=== PATIENT | female | born 1955 | race Caucasian/White ===

== ENCOUNTER 2019-05-28 16:13 | Emergency (ER) | payer MEDICARE, MEDICAID ==
[2019-05-28] MEDS ORDERED: NS 0.9% 1000 ML** 1,000 ML IV ONE (16:41)
[2019-05-28] MEDS ORDERED: Morphine 4 MG/ML VIAL (1 ml) 4 MG/ML VIAL IV ONE (16:52)
[2019-05-28] MEDS ORDERED: Ondansetron INJ* 2 MG/ML VIAL IV ONE (16:52)
--- NOTE | 2019-05-28 16:56 | ED ---
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 She notes that she has been vomiting green vomit and having constant diarrhea. She rates her pain severity due to the abd pain a 6/10. She has blood clots and takes Xarelto regularly. No aggravating or alleviating factors noted. She also denies dysuria, burning, back pain, and fever. - History of Current Complaint Chief Complaint: EDAbdPain Stated Complaint: VOMITING/DIARRHEA AND SIDE PAINS PER PT Time Seen by Provider: 05/28/19 16:41 Hx Obtained From: Patient Onset/Duration: Sudden Onset, Lasting Days, Still Present Timing: Days Severity Initially: Moderate Severity Currently: Moderate Pain Intensity: 6 Pain Scale Used: 0-10 Numeric Location: Discrete At: LLQ Aggravating Factor(s): Nothing Alleviating Factor(s): Nothing Associated Signs and Symptoms: Positive: Negative - dysuria, back pain, burning , Vomiting, Diarrhea. Negative: Fever Allergies/Adverse Reactions: Allergies Allergy/AdvReac Type Severity Reaction Status Date / Time ampicillin Allergy Vomiting Verified 05/28/19 16:19 hydrocodone Allergy Vomiting Verified 05/28/19 16:19 hydromorphone [From Dilaudid] Allergy Vomiting Verified 05/28/19 16:20 PMH/Surg Hx/FS Hx/Imm Hx Sensory History: Denies: Hx Legally Blind, Hx Deafness Opthamlomology History: Denies: Hx Legally Blind EENT History: Denies: Hx Deafness - Surgical History Surgical History: None Surgery Procedure, Year, and Place: none Infectious Disease History: No Infectious Disease History: Denies: Traveled Outside the [place] in Last 30 Days - Family History Known Family History: Negative: Renal Disease - Social History Alcohol Use: None Hx Substance Use: No Substance Use Type: Reports: None Hx Tobacco Use: No Review of Systems Negative: Fever Positive: Abdominal Pain, Vomiting, Diarrhea Negative: burning, dysuria Musculoskeletal: Other - neg - back pain All Other Systems Reviewed And Are Negative: Yes Physical Exam - Summary Physical Exam Summary: Constitutional: Well-developed, Well-nourished, Alert. (-) Distressed Skin: Warm, Dry HENT: Normocephalic; Atraumatic Eyes: Conjunctiva normal Neck: Musculoskeletal ROM normal neck. (-) JVD, (-) Stridor, (-) Tracheal deviation Cardio: Rhythm regular, rate normal, Heart sounds normal; Intact distal pulses; The pedal pulses are 2+ and symmetric. Radial pulses are 2+ and symmetric. (-) Murmur Pulmonary/Chest wall: Effort normal. (-) Respiratory distress, (-) Wheezes, (-) Rales Abd: Soft, LLQ tenderness, mild distension, (-) Guarding, (-) Rebound Musculoskeletal: (-) Edema Lymph: (-) Cervical adenopathy Neuro: Alert, Oriented x3 Psych: Mood and affect Normal Triage Information Reviewed: Yes Vital Signs On Initial Exam: Initial Vitals Temp Pulse Resp BP Pulse Ox 97.2 F 78 16 160/97 97 05/28/19 16:14 05/28/19 16:14 05/28/19 16:14 05/28/19 16:14 05/28/19 16:14 Vital Signs Reviewed: Yes Procedures - Sedation Patient Received Moderate/Deep Sedation with Procedure: No Diagnostics - Vital Signs Vital Signs Temp Pulse Resp BP Pulse Ox 05/28/19 16:14 97.2 F 78 16 160/97 97 - Laboratory Result Diagrams: 05/28/19 17:12 05/28/19 17:12 Lab Statement: Any lab studies that have been ordered have been reviewed, and results considered in the medical decision making process. 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 She notes that she has been vomiting green vomit and having constant diarrhea. Test results normal except for Sodium 133, Carbon Dioxide 21, BUN/Creatinine 21.9, Glucose 147, Calcium 11.1, AST 11, and Alkaline Phosphatase 149. Final Dx are abd pain and rule out diverticulitis. This pt will be a sign-out to Dr. Perkins at the 1900 05/28/[address] A/P and disposition. - Diagnoses Provider Diagnoses: Abdominal pain Discharge ED - Sign-Out/Discharge Documenting (check all that apply): Sign-Out Patient Signing out patient TO: Felipe Perkins - Discharge Plan Referrals: Cali Sandhu MD [Primary Care Provider] - - Attestation Statements Document Initiated by Scribe: Yes Documenting Scribe: Epifanio Sanchez Provider For Whom Scribe is Documenting (Include Credential): Emre Giraldo DO Scribe Attestation: I, Epifanio Sanchez, scribed for Emre Giraldo DO on 05/28/19 at 1847.
[2019-05-28 17:19] LABS: ABS Eosinophils 0.1 10^3/ul (0-0.6); ABS Lymphocytes 1.5 10^3/ul (1.0-4.8); ABS Monocytes 0.5 10^3/ul (0-0.8); Eosinophil % 1.6 %; Hematocrit 43 % (35-47); Hemoglobin 14.6 g/dL (12.0-16.0); Lymphocyte % 21.3 %; Mean Corpuscular HGB Conc 34 g/dL (31-36); Mean Corpuscular Hemoglobin 30 pg (27-31); Mean Corpuscular Volume 89 fL (80-97); Mean Platelet Volume 8.5 fL (7.4-10.4); Nucleated Red Blood Cells % 0.2; Platelet Count 178 10^3/uL (150-450); Red Blood Count 4.86 10^6 /uL (3.70-4.87); Red Cell Distribution Width 15 % (10-15); White Blood Count 7.1 10^3/uL (3.5-10.8)
[2019-05-28 17:35] LABS: Albumin 4.1 g/dL (3.2-5.2); Albumin/Globulin Ratio 1.5 (1-3); BUN/Creatinine Ratio 21.9 (8-20); Calcium 11.1 mg/dL (8.6-10.3); EGFR African American 96.8 (>60); Globulin 2.7 g/dL (2-4); Total Bilirubin 0.5 mg/dL (0.2-1.0); Total Protein 6.8 g/dL (6.4-8.9)
--- NOTE | 2019-05-28 19:10 | ED ---
Progress - Progress Note Progress Note: Patient is received as a sign-out from Dr. Giraldo to Dr. Perkins at [address] ABD/PEL results. CT ABD/PEL IMPRESSION: 1. No CT findings to correlate with patient's symptomatology. 2. Borderline infrarenal aortic aneurysm. No rupture. THIS REPORT WAS REVIEWED BY DR. PERKINS. Patient was discharged to home with PCP follow-up. Re-Evaluation - Re-Evaluation First Eval Re-Evaluation Time: 20:42 Comment: Results of CT were discussed with the patient, patient was discharged to home. Course/Dx - Course Course Of Treatment: Patient is received as a sign-out from Dr. Giraldo to Dr. Perkins at 1900 05/28/[address] ABD/PEL results. CT ABD/PEL IMPRESSION: 1. No CT findings to correlate with patient's symptomatology. 2. Borderline infrarenal aortic aneurysm. No rupture. Patient was discharged to home with PCP follow-up. - Diagnoses Provider Diagnoses: Abdominal pain Discharge ED - Sign-Out/Discharge Documenting (check all that apply): Patient Departure - discharge - Discharge Plan Condition: Stable Disposition: HOME Prescriptions: Dicyclomine CAP* [Bentyl CAP*] 10 mg PO ACHS PRN #15 cap PRN Reason: abdominal cramping Diphenoxylat/Atrop 2.5-0.025M* [Lomotil TAB*] 1 tab PO QID PRN #15 tab MDD 3 PRN Reason: Diarrhea Ondansetron ODT TAB* [Zofran 4 MG Odt TAB*] 8 mg PO Q6H PRN #12 tab.odt PRN Reason: Nausea Patient Education Materials: Gastroenteritis (ED) Referrals: Cali Sandhu MD [Primary Care Provider] - - Attestation Statements Document Initiated by Scribe: Yes Documenting Scribe: EMILIA PIÑA Provider For Whom Sallie is Documenting (Include Credential): LYNETTE PERKINS MD Scribe Attestation: EMILIA Henning, scribed for LYNETTE PERKINS MD on 05/28/19 at 2107. Status of Scribe Document: Ready
[2019-05-28] MEDS ORDERED: Iohexol 300* (CONTRAST) 10 ML SDV IV ONE (19:54)
[2019-05-28 20:37] VITALS: BP 152/74
[2019-05-28] MEDS ORDERED: Ondansetron ODT TAB* 4 MG SL ONE (20:42)
[2019-05-28] MEDS ORDERED: Dicyclomine CAP* 10 MG PO ONE (20:42)
[2019-05-28] MEDS ORDERED: Diphenoxylat/Atrop 2.5-0.025M* 1 TAB PO ONE (20:44)
== END 2019-05-28 21:01 | disposition home or self-care (01) ==
LOC: ED 16:13
DX: R10.32 Left lower quadrant pain (principal); R11.10 Vomiting, unspecified; R19.7 Diarrhea, unspecified; I71.9 Aortic aneurysm of unspecified site, without rupture; Z79.01 Long term (current) use of anticoagulants; Z88.5 Allergy status to narcotic agent; Z88.0 Allergy status to penicillin
CPT/HCPCS: 36415; 74177; 80053; 85025; 96361; 96374; 96375; 99284; A9270-GY; J2270; J2405; Q9967